=== PATIENT | female | born 1985 | race Caucasian/White ===

== ENCOUNTER 2017-02-19 16:36 | Observation (INO) | payer OTHER ==
[~2017-02-19] VITALS: Ht 160 cm; Wt 65.0 kg
[2017-02-19] MEDS ORDERED: ARIP5TAB13 PO (16:52)
[2017-02-19] MEDS ORDERED: OXCA150T3 PO (16:52)
[2017-02-19] MEDS ORDERED: ESCI20TA10 PO (16:52)
[2017-02-19] MEDS ORDERED: TRAZ50TA18 PO (16:52)
[2017-02-19 17:00] LABS: DAU SCREEN DISCLAIMER
[2017-02-19 17:26] LABS: HEMATOCRIT 38.8 % (34.6-47.8); HEMOGLOBIN 13.2 g/dL (11.7-16.4); WHITE BLOOD COUNT 7.1 x10^3/uL (3.4-10)
[2017-02-19 17:38] LABS: BLOOD UREA NITROGEN 5 mg/dL (7-18)
[2017-02-19 17:43] LABS: ACETAMINOPHEN < 2 mcg/mL (10-30)
[2017-02-20] MEDS ORDERED: QUETIAPINE 25MG TABLET PO PRN (00:30)
[2017-02-20] MEDS ORDERED: DIPHENHYDRAMINE 50 MG CAPSULE PO PRN (00:30)
[2017-02-20] MEDS ORDERED: ZIPRASIDONE 20 MG INJ IM PRN (00:30)
[2017-02-20 00:43] VITALS: BP 115/82
[2017-02-20 08:00] VITALS: BP 104/68
[2017-02-20] MEDS: NITROFURANTOIN (MACROBID) 100 MG CAPSULE PO SCH ×2 (11:47→21:18)
[2017-02-20] MEDS: ARIPIPRAZOLE 5 MG TABLET PO SCH (13:22)
[2017-02-20] MEDS: CITALOPRAM 20 MG TABLET PO SCH (13:24)
[2017-02-20 19:31] VITALS: BP 108/65
[2017-02-20] MEDS: TRAZODONE 50MG TABLET PO SCH (21:18)
[2017-02-20] MEDS: OXCARBAZEPINE 150 MG TABLET PO SCH (21:22)
[2017-02-21 08:00] VITALS: BP 93/60
[2017-02-21] MEDS: OXCARBAZEPINE 150 MG TABLET PO SCH ×2 (08:43→20:57)
[2017-02-21] MEDS: ARIPIPRAZOLE 5 MG TABLET PO SCH (08:44)
[2017-02-21] MEDS: CITALOPRAM 20 MG TABLET PO SCH (08:44)
[2017-02-21] MEDS: NITROFURANTOIN (MACROBID) 100 MG CAPSULE PO SCH ×2 (08:44→20:57)
[2017-02-21 19:36] VITALS: BP 103/63
[2017-02-21] MEDS: TRAZODONE 50MG TABLET PO SCH (20:57)
[2017-02-22 08:00] VITALS: BP 100/68
[2017-02-22] MEDS: OXCARBAZEPINE 150 MG TABLET PO SCH ×2 (09:13→20:17)
[2017-02-22] MEDS: NITROFURANTOIN (MACROBID) 100 MG CAPSULE PO SCH ×2 (09:14→20:17)
[2017-02-22] MEDS: ARIPIPRAZOLE 5 MG TABLET PO SCH (09:14)
[2017-02-22] MEDS: CITALOPRAM 20 MG TABLET PO SCH (09:14)
[2017-02-22 19:34] VITALS: BP 101/68
[2017-02-22] MEDS: TRAZODONE 50MG TABLET PO SCH (20:17)
[2017-02-23 07:50] VITALS: BP 98/63
[2017-02-23] MEDS: CITALOPRAM 20 MG TABLET PO SCH (09:12)
[2017-02-23] MEDS: NITROFURANTOIN (MACROBID) 100 MG CAPSULE PO SCH ×2 (09:12→20:24)
[2017-02-23] MEDS: ARIPIPRAZOLE 5 MG TABLET PO SCH (09:12)
[2017-02-23] MEDS: OXCARBAZEPINE 150 MG TABLET PO SCH ×2 (09:12→20:24)
[2017-02-23 19:13] VITALS: BP 105/69
[2017-02-23] MEDS: TRAZODONE 50MG TABLET PO SCH (20:24)
[2017-02-24 07:55] VITALS: BP 96/69
[2017-02-24] MEDS: NITROFURANTOIN (MACROBID) 100 MG CAPSULE PO SCH ×2 (08:32→20:28)
[2017-02-24] MEDS: CITALOPRAM 20 MG TABLET PO SCH (08:32)
[2017-02-24] MEDS: OXCARBAZEPINE 150 MG TABLET PO SCH ×2 (08:32→20:28)
[2017-02-24] MEDS: ARIPIPRAZOLE 5 MG TABLET PO SCH (08:32)
[2017-02-24 19:39] VITALS: BP 96/62
[2017-02-24] MEDS: TRAZODONE 50MG TABLET PO SCH (20:28)
[2017-02-25 08:20] VITALS: BP 106/74
[2017-02-25] MEDS: ARIPIPRAZOLE 5 MG TABLET PO SCH (08:39)
[2017-02-25] MEDS: NITROFURANTOIN (MACROBID) 100 MG CAPSULE PO SCH (08:39)
[2017-02-25] MEDS: CITALOPRAM 20 MG TABLET PO SCH (08:39)
[2017-02-25] MEDS: OXCARBAZEPINE 150 MG TABLET PO SCH (08:39)
== END 2017-02-25 18:30 ==
LOC: ED 18:39 → INTOOBSV 19:50 → EDIP 19:50 → 3E 02-20 00:42
PROVIDERS: ADMIT Internal Medicine; ATTEND Internal Medicine
DX: T14.91 Suicide attempt (principal); X83.8XXA Intentional self-harm by other specified means, initial encounter; T43.212A Poisoning by selective serotonin and norepinephrine reuptake inhibitors, intentional self-harm, initial encounter; F31.9 Bipolar disorder, unspecified; F41.9 Anxiety disorder, unspecified; N39.0 Urinary tract infection, site not specified; Y93.89 Activity, other specified; Y92.89 Other specified places as the place of occurrence of the external cause; Y99.8 Other external cause status
CPT/HCPCS: 36415; 80048; 80307; 80329; 81001; 82040; 84703; 85025; 87086; 93005; 99285; G0378; G0479; G0480